=== PATIENT | male | born 1940 | race Caucasian/White ===

== ENCOUNTER 2018-10-08 11:25 | Inpatient (IN) | payer MEDICARE, OTHER, SELFPAY ==
[2018-09-24 12:35] VITALS: BMI 27.6
[2018-10-08] VITALS (14 sets, daily range): BP systolic 115–196; BP diastolic 67–96; PULSE 59–80; RESP 15–19; TEMP 35.8–36.8; O2SAT 90–99; BMI 27.6
--- NOTE | 2018-10-08 | DI.RAD.S_ITS ---
PROCEDURE: XR HIP W PEL IF DONE LT 2V INDICATIONS: TOTAL LEFT HIP TECHNIQUE: 2 view(s) of the hip acquired. COMPARISON: [facility], CR, XR PELVIS WITH BILATERAL LATERAL HIPS, 07/08/2018, 15:01. [facility], CR, XR PELVIS 1-2V, 10/08/2018, 16:21. FINDINGS: Bones: Patient is status post left hip arthroplasty, with hardware components in expected positions. The hip joint appears congruent. The visualized bony structures appear intact. Soft tissues: Overlying postoperative changes are noted. No suspicious soft tissue densities. IMPRESSION: 1. Expected postsurgical changes status post left hip arthroplasty. Dictated by: Eduardo Dimas M.D. on 10/08/2018 at 19:03 Approved by: Eduardo Dimas M.D. on 10/08/2018 at 19:04
[2018-10-08] MEDS: PREGABALIN 75 MG CAPSULE PO (11:58)
[2018-10-08] MEDS: CELECOXIB 200 MG CAPSULE PO (11:58)
[2018-10-08] MEDS: ACETAMINOPHEN 325 MG TABLET 975 MG PO ×2 (11:58→20:39)
[2018-10-08] MEDS: LACTATED RINGERS 1,000 ML 42 ML IV ×2 (12:01→17:23)
--- NOTE | 2018-10-08 12:41 | SUR.PREOP ---
Pt is ready for OR at this time. PIV patent and fluids infusing at TKO, Cefazolin is hanging for Anesthesia to administer, and Vanomycin will be started when instructed by OR staff. Awaiting bedside assessment from Dr Rios, Dr Hammer, and OR Electrical Tech RN. is at bedside and Pt resting comfortably at this time.
--- NOTE | 2018-10-08 13:30 | DI.RAD.S_ITS ---
PROCEDURE: XR PELVIS 1-2V INDICATIONS: INTRA OPERATIVE LEFT HIP TECHNIQUE: Intra-operative view of the pelvis and hip acquired. COMPARISON: [facility], , PELVIS 1 OR 2 VIEWS, 11/29/2016, 12:33. FINDINGS: Bones: Intraoperative devices prior to placement of arthroplasty prostheses are in expected positions. No fractures or suspicious bony lesions. Soft tissues: Overlying surgical retractors are present, along with other intraoperative changes. IMPRESSION: Expected appearance of the intraoperative arthroplasty prostheses. Dictated by: Nayla Amador M.D. on 10/08/2018 at 17:02 Approved by: Nayla Amador M.D. on 10/08/2018 at 17:03
[2018-10-08] MEDS: VANCOMYCIN 1,000 MG/200 ML FROZ.PIGGY 200 MG IV (13:33)
--- NOTE | 2018-10-08 13:48 | SUR.PREOP ---
Verified labs and EKG are in chart. Pacemaker Rep was here approximately 1300 and defibrilator was turned off and placed on DDO mode. Anesthesia is aware and the pacemaker rep would like to be called when the Pt gets to the recovery room after surgery.
--- NOTE | 2018-10-08 14:35 | PM.PREOP ---
Pre-operative Note Interval Note Pre-op Check: Yes History & Physical Reviewed by Physician and Yes Exam Performed Changes: No
--- NOTE | 2018-10-08 14:36 | PM.OP.1 ---
Operative Date/Time/Diagnoses Date of procedure: 10/08/18 Time of procedure: 14:56 Pre-op diagnosis: Left hip arthritis Post-op diagnosis: same Procedure & Clinicians Procedure: Left total hip arthroplasty Same procedure as scheduled: Yes Indications: The patient has had progressively worsening left hip pain with radiographic changes consistent with arthritis. Non-operative management has failed and the patient has requested total hip replacement. The risks, benefits and alternatives to surgery were discussed with the patient prior to proceeding. Risks discussed included, but were not limited to, failure to relieve pain, leg length discrepancy, dislocation, stiffness, infection, nerve damage, deep venous thrombosis, pulmonary embolism, stroke, coma, heart attack, permanent paralysis and , as well as the potential need for eventual revision of the prosthetic. Surgeon: Guerline Rios Documentation Engineer: Blank Cooley Anesthesia Type: General Operative Notes Findings: Severe left hip osteoarthritis, good stability Closure Type: primary Specimen(s): none sent Implants & Drains: [employer] R3 62 cup, 40 mm +0 poly, size 12 extended offset anthology stem Applied: drain(s) Estimated Blood Loss (mL): 300 Blood products transfused: none Procedure in detail: The patient was seen in the pre-operative area, where the patient identified the left hip as the operative site and this was marked with my initials. The patient received pre-operative antibiotics and was taken to the operating room and placed on the operative table in the right lateral decubitus position after satisfactory anesthesia. A methods time analyst out was performed. The left leg was prepared from the ankle to the iliac crest with ChloroPrep in the usual fashion and draped through sterile drapes. The hip was approached through an approximately 20 cm incision centered over the greater trochanter and curving gently posteriorly as it went proximally. This was carried sharply to the fascia citlalli, which was divided and retracted with a self retaining retractor. The trochanteric bursa was excised with care being taken to avoid the sciatic nerve, which was identified and protected throughout the case. The short external rotators were incised and the capsulomuscular flap was raised and tagged for later repair. The hip was dislocated, and a femoral neck osteotomy performed approximately 15 mm above the lesser trochanter. Retractors were placed around the femur. The canal was opened with a box cutting osteotome, followed by a T handled reamer and a lateralizing reamer. The chili pepper broach was then used, followed by sequential broaching until there was good stability of the broach in the femur. Retractors were placed to expose the acetabulum. The labrum and central soft tissues were removed. Reaming was performed initially going up in 2 mm increments, then 1 mm increments until good bite was obtained with an odd sized reamer. The cup 1 mm larger than the last reamer was then inserted using the appropriate anteversion guides. A trial neutral liner was placed. The broach was placed in the canal. A trial head and neck were then placed and the hip relocated and checked for leg length and stability. An intraoperative film confirmed the component position and no evidence of fracture. The patient was stable in the position of sleep, of squatting, and could be put through a range of motion with 45 degrees internal rotation without dislocation. At 90 degrees flexion, internal rotation to 70 was possible before dislocation. This was felt to be satisfactory and the appropriate components were opened, and the trials were removed. The acetabular liner was impacted into position. The final stem was then impacted into the prepared femoral canal. A brief Betadine soak was performed while trialing with head options. The hip was meticulously irrigated with normal saline. Finally the femoral head was impacted onto the stem. The acetabulum was cleared of all material and the hip relocated one final time. The capsulomuscular flap was then repaired to the greater trochanter though an awl hole using the tag sutures. The short external rotators were repaired with a nonabsorbable polyethylene. A deep drain was placed and brought out anteriorly. The fascia citlalli was closed with nonabsorbable polyethylene. The subcutaneous layer was closed with barbed sutures and SteriStrips. An Aquacel Ag dressing was applied and the patient was taken to recovery having tolerated the procedure well. Complications: none Condition: stable Disposition: Acute Care Plan for aftercare: The patient will be maintained on a standard total hip replacement protocol with weight bearing as tolerated and posterior hip precautions. The patient will receive Aspirin and sequential compression devices for DVT prophylaxis. The patient will be discharged home when safe for the home environment.
[2018-10-08] MEDS: CEFAZOLIN 2 GM/100 ML FROZ.PIGGY IV ×2 (14:58→22:37)
--- NOTE | 2018-10-08 15:45 | SUR.OPER ---
Lateral on padded OR bed. Gel axillary roll. Arms secured on padded armboard with pillow supporting top arm. Padded hip positioner braces x4 - anterior and posterior chest and pelvis. Additional gel pad used anterior pelvis. Gel pad under bottom leg from knee to foot and secured with tape over sheet.
[2018-10-08] MEDS: BUPIVACAINE 0.25% W/ EPI VIAL 50 ML INJ ×2 (15:49→16:09)
[2018-10-08] MEDS: SODIUM CHLORIDE IRRIG SOLUTION 250 ML, EPINEPHrine 1 MG IRR (16:13)
[2018-10-08] MEDS: BUPIVACAINE LIPOSOME 266 MG/20 ML VIAL INJ (16:14)
[2018-10-08] MEDS: TRANEXAMIC ACID 1,000 MG VIAL 2000 MG IV (16:20)
[2018-10-08] MEDS: POVIDONE-IODINE 15 ML, SODIUM CHLORIDE 0.9% 250 ML TOP (17:04)
[2018-10-08] MEDS: LACTATED RINGERS 1,000 ML 125 ML IV (19:11)
[2018-10-08] MEDS: DOCUSATE 100 MG CAPSULE PO (20:39)
[2018-10-08] MEDS: ATORVASTATIN 20 MG TABLET 80 MG PO (20:39)
[2018-10-08] MEDS: ASPIRIN EC 81 MG TABLET PO (20:39)
[2018-10-08] MEDS: METOPROLOL ER 25 MG TABLET PO (21:01)
--- NOTE | 2018-10-08 23:37 | PC.ADMIT ---
Admission Note: late entry-- Pt arrived to floor at 1830- in room. awake and alert. answers questions BP elevated but baseline for pt. Pt fluids started. on oxygen. 95%. Pt uses call light. has wedding ring on. all other valuables taken home by . Pt cooperative and compliant with nursing staff and students. pleasant. hv draining. bed alarm on. will continue to monitor. 2100- pt not yet voided. bl;adder scan showed 350- pt tired to void. will continue to monitor. 2119- pt had episode of emesis- 300 ml- clear per pt. pt stated he felt ok. refused zofran. will continue to monitor.
[2018-10-09] MEDS: IBUPROFEN 600 MG TABLET PO ×2 (02:53→09:49)
[2018-10-09 03:00] VITALS: BP 129/65; PULSE 60; RESP 19; TEMP 36.3; O2SAT 97
[2018-10-09 05:47] LABS: Hematocrit 33.2 % (41-53); Hemoglobin 11.3 g/dL (13.5-17.5)
[2018-10-09] MEDS: CEFAZOLIN 2 GM/100 ML FROZ.PIGGY IV (06:09)
--- NOTE | 2018-10-09 08:47 | PT.IIE ---
Current Diagnoses Unilateral primary osteoarthritis, left hip (10/08/18) Surgery Performed Operation Date: 10/08/18 13:30 Actual Procedures p Total Hip Arthroplasty(Left) - Guerline Rios MD Surgical History (Last Updated 09/24/18 @ 13:31 by Briana Don, RN) History of cystoscopy (Acute) History of total right hip arthroplasty (Acute 11/29/16) Hx of heart artery stent (Acute ~09/2017) Hx of tonsillectomy (Acute) S/P epidural steroid injection (Acute) Medical History (Last Updated 09/24/18 @ 13:31 by Briana Don, RN) Bladder cancer (Acute ~2000) CAD (coronary artery disease) (Acute) Cardiac arrest (Acute ~09/2017) Chronic renal insufficiency (Acute) Complex renal cyst (Acute) Constipation (Acute) Depression (Acute) Easy bruisability (Acute) Enlarged prostate (Acute) Hearing loss (Acute) Hemorrhoids (Acute) Hyperlipidemia (Acute) Hypertension (Acute) ICD (implantable cardioverter-defibrillator) in place (Acute 09/17/17) Infected sebaceous cyst (Acute) Myoclonia (Acute) Osteoarthritis (Acute) Perirectal abscess (Acute) Spermatocele (Acute) Syncopal episodes (Acute ~2016) Physical Therapy Inpatient Evaluation/Re-Eval M1 PT/OT-IP Prior Functional Status Start: 10/09/18 08:18 Freq: NEEDED Status: Active Protocol: Document 10/09/18 08:00 AMB (Rec: 10/09/18 08:46 AMB [email or web address]) Medical Review Prior Functional Status Medical History Reviewed Yes Diet/Fluid Consistency Regular Mobility and Gait Ambulating with SPC Activities of Daily Living and IADL's Swims at the pool 3x/ week Social History Household Members spouse Living Arrangements House Number of Floors (Floors) One Floor Number of Stairs To Enter/Railing? Ramp to enter Home Equipment Front Wheel Walker Straight Cane Employment Status Retired M2 PT-IP Current Condition Start: 10/09/18 08:18 Freq: NEEDED Status: Active Protocol: Document 10/09/18 08:00 AMB (Rec: 10/09/18 08:46 AMB [email or web address]) Physical Therapy Current Condition Current Condition Evaluation Date 10/09/18 Treatment Diagnosis Left posterior SHARDA Onset Date 10/08/18 Precautions Posterior Hip Precautions No Hip Flexion > 90 degrees No Hip Internal Rotation No Hip Adduction M3 PT-IP Subjective Start: 10/09/18 08:18 Freq: NEEDED Status: Active Protocol: Document 10/09/18 08:00 AMB (Rec: 10/09/18 08:46 AMB [email or web address]) Subjective Physical Therapy Visit Type Type Initial Evaluation Visit Start Time 07:35 Visit Stop Time 08:10 Total Visit Minutes 35 Number of WEATHERIZATION OPERATIONS MANAGER Visits 0 Physical Therapy Visit Comments Patient Comments Pt willing to get up, denies dizziness, lightheadedness. Did have one bout of emesis last night. Has been able to void urine. Therapy Pain Assessment Pain When Pain Assessed At Rest Location Left Hip Intensity 2 Scale Used Numeric (1 - 10) M4 PT-IP Mobility and Gait Start: 10/09/18 08:18 Freq: NEEDED Status: Active Protocol: Document 10/09/18 08:00 AMB (Rec: 10/09/18 08:46 AMB [email or web address]) PT-Bed Mobility Assessment Rolling Level of Assist Standby Assistance Supine to Sit Supine to Sit Standby Assistance Scooting Scooting to Edge of Bed Standby Assistance PT-Transfer Assessment Sit to and From Stand Sit to and from Stand Standby Assistance Transfers Transfer Destination Chair Transfer Technique Stand Step Pivot Transfer Ability Level of Assist Standby Assistance Comments Mobility Comments verbal cues for hip precautions, safety Gait Assessment Gait Gait Assistance Required: Contact Guard Assist Distance (Feet) 200 Able to Maintain Weight Bearing Status Yes During Gait Assistive Devices Assistive Device Gait Belt Straight Cane Front Wheeled Walker Gait Deviations General Gait Pattern Antalgic Decreased Stride Length Factors Limiting Gait Function Factors Limiting Gait Function Decreased Activity Tolerance Decreased Strength Pain Comments Gait Comments Would encourage pt to use FWW for the first few days at home instead of SPC for balance. SPC is too short for him, it is wooden and was his friends so it is not adjustable. PT-Balance Assessment Sitting Balance and Reactions Static Sitting Balance Ability Good Dynamic Sitting Balance Ability Good M5 PT-IP Objective Assessments Start: 10/09/18 08:18 Freq: NEEDED Status: Active Protocol: Document 10/09/18 08:00 AMB (Rec: 10/09/18 08:46 AMB [email or web address]) Orientation Orientation/Cognition Level of Alertness Alert Gross Range of Motion Lower Extremity ROM Assessment Within Functional Limits Sensation Assessment Sensation Light Touch Intact M6 PT-IP Treatment Start: 10/09/18 08:18 Freq: NEEDED Status: Active Protocol: Document 10/09/18 08:00 AMB (Rec: 10/09/18 08:46 AMB [email or web address]) Physical Therapy Treatment Exercises Exercises Ankle Pumps Gluteal Sets Quad Sets Education Education Provided Precautions Weight Bearing Status Post-Op Packet Safety Brace Education Patient M7 PT-IP Assessment and Plan Start: 10/09/18 08:18 Freq: NEEDED Status: Active Protocol: Document 10/09/18 08:00 AMB (Rec: 10/09/18 08:46 AMB [email or web address]) PT Summary Assessment and Plan Potential Rehabilitation Potential Good Status of Condition at Evaluation Stable Summary Impairments Pain Strength Gait Activity Tolerance Assessment Summary The patient presents s/p L SHARDA with posterior hip precautions. This is his second hip replacement (the first was on the right side). His pain levels are low and blood pressure has been a little high (his normal). He needed cues for adherence to his precautions and for safety with gait, but otherwise is doing well. He will be able to discharge home with his when he is medically stable. Goals Bed Mobility Goal Standby Assistance Transfer Goal Independent Gait Goal Standby Assistance Front Wheel Walker Gait Distance 300 Frequency of Treatment Frequency Of Treatment Twice a Day Treatment Plan Physical Therapy Treatment Plan Bed Mobility Training Transfer Training Gait Training Therapeutic Exercise Balance Retraining Post Op Education Hot or Cold Pack Neuromuscular Re-ed Other Recommendations and Next Treatment Safety with gait/ transfers Focus Recommendations To Nursing Amount of Assist Needed Standby Assistance Discharge Recommendations PT Discharge Recommendations Home with Assistance
--- NOTE | 2018-10-09 09:00 | CM.DANOTE ---
DCP: Case received, EMR reviewed and met with patient. Introduced self and role. DCP template completed with information currently available. Patient is a 78 year old male who admitted yesterday morning to the care of the hospitalist team. PCP: Dr. Grimm. Payer: confirmed: Medicare/[employer]. Patient came to hospital for Total Hip Arthroplasty. Has history of L Hop Osteoarthritis. Met with patient in room. Pleasant, alert and oriented. Stated that he is independent at home, but does use a walker at times. Lives at home with his spouse. Patient already has outpatient physical therapy set up. Discussed insurance and Medicare coverage while in room. Patient working with physical therapy. P: Patient should be going home when stable. Will pursue outpatient physical therapy as well. Oxana Flores RN/Polisher Apprentice
--- NOTE | 2018-10-09 09:33 | PM.DS.1 ---
History of Present Illness Date Patient Seen: 10/09/18 Time Patient Seen: 09:34 Chief complaint: TOTAL HIP ARTHROPLASTY L [id number] Narrative: Patient's pain is 3/10. Denies fever chills. No nausea vomiting. Discharge Providers Date of admission: 10/08/18 11:25 Primary care physician: Marian Grimm MD Consults: 09/24/18 13:47 Consult to Respiratory Therapy Evaluate & Treat Comment: LT SHARDA 10/08 - STOP BANG positive-prior PSG neg Physician Instructions: Evaluate and treat 09/24/18 14:49 Consult to Anesthesiology Routine Comment: Consulting Provider: Anesthesiologist Reason for consultation: PAC Courtesy re:Cardiac history 10/08/18 06:00 Consult to Anesthesiology Routine Comment: Consulting Provider: Anesthesiologist Reason for consultation: Regional block for post operative pain control 10/08/18 18:36 Consult to Discharge Planning Routine Comment: Consult to Physical Therapy Evaluate & Treat Comment: posterior Physician Instructions: post op SHARDA protocol Consult to Respiratory Therapy Evaluate & Treat Comment: Physician Instructions: Evaluate and treat Discharge provider: Gabino Weinberg PA-C Discharge Date: 10/09/18 Summary Discharge Diagnosis: Status post left total hip arthroplasty Hospital Course: Patient has had progressive worsening left hip pain with radiographic changes consistent with severe DJD left hip. Patient failed non op treatment. Patient admitted to the hospital for left total hip arthroplasty. Patient consented to the same. Patient taken to the operating room on 10/08/2018 underwent left total hip arthroplasty. Patient general anesthesia. Estimated blood loss 300 cc. Patient back in his room recovering well and is in stable condition. Status at Discharge Functional status at discharge: uses cane/walker Overall status at discharge: patient is progressing back to baseline Time Spent with Patient Less than 30 minutes Exam Vital Signs (past 8 hours): - 10/09/18 03:00 Temperature 97.4 F L Pulse Rate 60 Respiratory Rate 19 Blood Pressure 129/65 Pulse Oximetry 97 Oxygen Delivery Method Nasal Cannula Oxygen Flow Rate 2 Narrative Exam Narrative: 78-year-old male walking in the [place]arrama with physical therapy in no acute distress. Dressing is clean, dry and intact. Neurovascular status is intact to the bilateral lower extremities. Objective Labs Result Diagrams: 10/09/18 05:00 Labs: Laboratory Results - last 24 hr 10/09/18 05:00 Hgb 11.3 L Hct 33.2 L Discharge Plan Discharge Plan Patient Disposition: Home Discharge comment: DC home today Discharge Med Rec/Prescriptions Prescriptions: Continue multivitamin [Multiple Vitamins] 1 EACH tablet 1 tab PO QDAY Qty: 0 RF: 0 meloxicam 15 MG tablet 15 mg PO QDAY Qty: 0 RF: 0 triamterene-hydrochlorothiazid 75 MG/50 MG tablet 1 tab PO QDAY Qty: 0 RF: 0 losartan [Cozaar] 100 MG tablet 100 mg PO QAM Qty: 0 RF: 0 atorvastatin 80 mg Tablet 80 mg PO BEDTIME RF: 0 clopidogrel 75 mg Tablet 75 mg PO DAILY RF: 0 metoprolol succinate 25 mg Tablet Extended Release 24 Hr 25 mg PO BID RF: 0 duloxetine 20 mg Capsule,Delayed Release(Dr/Ec) 60 mg PO QAM RF: 0 aspirin 81 MG tablet,delayed release (DR/EC) 81 mg PO DAILY RF: 0 Follow up/Referrals: Marian Girmm MD [Primary Care Provider] - Guerline Rios MD [Physician] - 1 Week Provider Discharge Instructions Diet: Diet as Tolerated Activity: Weightbearing as tolerated, posterior hip precautions Cold/Heat Therapy: Apply ice as needed Skin/Wound/Dressing Care Report to your healthcare provider any signs of infection, such as:: chills, fever, night sweats, increased pain and unusual drainage Dressing: Keep dressing clean and dry Discharge Data Primary Care Provider: Marian Girmm Attending Provider: Guerline Rios Admit Date/Time: 10/08/18 11:25
[2018-10-09] MEDS: ACETAMINOPHEN 325 MG TABLET 975 MG PO (09:47)
[2018-10-09] MEDS: LOSARTAN 50 MG TABLET 100 MG PO (09:48)
[2018-10-09] MEDS: TRIAMTERENE/HCTZ 37.5/25 TABLET 1 CAP PO (09:48)
[2018-10-09] MEDS: MULTIVITAMIN 1 TABLET 1 TAB PO (09:48)
[2018-10-09] MEDS: CLOPIDOGREL 75 MG TABLET PO (09:48)
[2018-10-09] MEDS: DULOXETINE 20 MG CAPSULE 60 MG PO (09:48)
[2018-10-09] MEDS: DOCUSATE 100 MG CAPSULE PO (09:48)
[2018-10-09] MEDS: ASPIRIN EC 81 MG TABLET PO (09:48)
--- NOTE | 2018-10-09 09:48 | PC.NURSE ---
left hip hemovac dc'd with tip intact. pt tolerated well.
[2018-10-09] MEDS: METOPROLOL ER 25 MG TABLET PO (10:08)
== END 2018-10-09 13:20 | disposition home or self-care (01) | DRG 470 ==
PROVIDERS: Admitting Provider Orthopaedic Surgery; PCP Family Medicine; Visit Provider Orthopaedic Surgery
PROC: 0SRB0JZ Replacement of Left Hip Joint with Synthetic Substitute, Open Approach (ICD-10-PCS; CPT 27130; principal; 2018-10-08 13:30)
DX: M16.12 Unilateral primary osteoarthritis, left hip (principal); I10 Essential (primary) hypertension; F32.9 Major depressive disorder, single episode, unspecified; I25.10 Atherosclerotic heart disease of native coronary artery without angina pectoris; I65.29 Occlusion and stenosis of unspecified carotid artery; E78.5 Hyperlipidemia, unspecified; Z96.641 Presence of right artificial hip joint
CPT/HCPCS: 36415; 72170; 73502; 85014; 85018; 97161; C1776; C9290; J0171; J0690; J1100; J1170; J2250; J2405; J2704; J3010; J3370